=== PATIENT | male | born 1995 | race Caucasian/White ===

== ENCOUNTER 2018-02-27 21:17 | Emergency (ER) | payer OTHER ==
[2018-02-27 21:41] VITALS: BP 121/70
[2018-02-27] MEDS ORDERED: Amoxicillin/Clavulanate TAB* 875 MG PO ONE (21:59)
[2018-02-27] MEDS ORDERED: Tetan/Diph/Pertus SYR(Tdap)* 0.5 ML SYR(BOOSTRIX) use SYR IM ONE (22:03)
--- NOTE | 2018-02-27 22:03 | UC ---
Lower Extremity/Ankle HPI - HPI Summary HPI Summary: stepped on a metal pipe and cut the bottom of the left foot. More swelling and worsening pain since onset. - History of Current Complaint Chief Complaint: UCLaceration Stated Complaint: LEFT FOOT WOUND Time Seen by Provider: 02/27/18 21:55 Hx Obtained From: Patient Onset/Duration: Sudden Onset, Lasting Hours - 9, Worse Since - onset Severity Initially: Mild Severity Currently: Moderate Pain Intensity: 7 Aggravating Factor(s): Standing, Ambulation Alleviating Factor(s): Rest, Elevation Able to Bear Weight: Yes - Allergies/Home Medications Allergies/Adverse Reactions: Allergies Allergy/AdvReac Type Severity Reaction Status Date / Time No Known Allergies Allergy Verified 02/27/18 21:42 Home Medications: Home Medications Acetaminophen [Tylenol Extra Strength] 500 mg PO Q6H PRN 02/27/18 [History Confirmed 02/27/18] PMH/Surg Hx/FS Hx/Imm Hx Previously Healthy: Yes - Surgical History Surgical History: Yes - Family History Known Family History: Positive: Diabetes - Social History Occupation: Employed Full-time Lives: Alone Alcohol Use: Occasionally Substance Use Type: None Smoking Status (MU): Current Some Day Smoker Have You Smoked in the Last Year: Yes Cessation Counseling: Patient Advised to Stop - Immunization History Most Recent Tetanus Shot: 2013 Review of Systems ENT: Nasal Discharge Respiratory: Cough Is Patient Immunocompromised?: No All Other Systems Reviewed And Are Negative: Yes Physical Exam Triage Information Reviewed: Yes Appearance: Well-Appearing, Well-Nourished, Pain Distress Vital Signs: Initial Vital Signs Temp 98.8 F 02/27/18 21:32 Pulse 70 02/27/18 21:32 Resp 20 02/27/18 21:32 BP 121/70 02/27/18 21:32 Pulse Ox 100 02/27/18 21:32 Vital Signs Reviewed: Yes Eyes: Positive: Conjunctiva Clear Neck exam: Normal Respiratory Exam: Normal Cardiovascular Exam: Normal Musculoskeletal: Positive: Other: - antalgic gait with left foot pain. Neurological Exam: Normal Skin: Positive: Other - 1.3 cm open wound left foot. Lower Extremity Course/Dx - Differential Dx/Diagnosis Differential Diagnosis/HQI/PQRI: Contusion, Foreign Body, Puncture Wound Provider Diagnoses: puncture wound left foot Discharge - Sign-Out/Discharge Documenting (check all that apply): Patient Departure All imaging exams completed and their final reports reviewed: No Studies - Discharge Plan Condition: Stable Disposition: HOME Prescriptions: Amoxicillin/Clavulanate TAB* [Augmentin TAB 875*] 875 mg PO BID #14 tab Patient Education Materials: Puncture Wound (ED), Amoxicillin/Clavulanate Potassium (By mouth) Forms: *Work Release Referrals: No Primary Care Phys,NOPCP [Primary Care Provider] - Additional Instructions: Use imodium 2mg with each antibiotic dose to prevent diarrhea. - Billing Disposition and Condition Condition: STABLE Disposition: Home
== END 2018-02-27 22:30 | disposition home or self-care (01) ==
LOC: UCCORT 21:17
DX: S91.332A Puncture wound without foreign body, left foot, initial encounter (principal); X58.XXXA Exposure to other specified factors, initial encounter; Y92.9 Unspecified place or not applicable; F17.200 Nicotine dependence, unspecified, uncomplicated; Z23 Encounter for immunization
CPT/HCPCS: 90471; 90715; 99203; A9270-GY; G0463